=== PATIENT | male | born 1955 | race American Indian/Alaskan Native ===

== ENCOUNTER 2019-09-21 03:35 | Emergency (ER) | payer OTHER ==
[2019-09-21] MEDS ORDERED: IBUPROFEN 600 MG TAB PO ONE (04:38)
[2019-09-21] MEDS ORDERED: ACETAMINOPHEN 500 MG TAB PO ONE (04:38)
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
[2019-09-21 07:38] VITALS: BP 140/90
== END 2019-09-21 07:31 | disposition home or self-care (01) ==
LOC: ED 03:35
DX: S63.501A Unspecified sprain of right wrist, initial encounter (principal); S43.401A Unspecified sprain of right shoulder joint, initial encounter; S20.20XA Contusion of thorax, unspecified, initial encounter; M24.231 Disorder of ligament, right wrist; Z79.1 Long term (current) use of non-steroidal anti-inflammatories (NSAID); Z79.899 Other long term (current) drug therapy; V49.49XA Driver injured in collision with other motor vehicles in traffic accident, initial encounter; W22.11XA Striking against or struck by driver side automobile airbag, initial encounter; Y93.89 Activity, other specified; Y92.410 Unspecified street and highway as the place of occurrence of the external cause; Y99.8 Other external cause status